=== PATIENT | male | born 1950 | race Caucasian/White ===

== ENCOUNTER 2022-09-26 08:46 | Day surgery (SDC) | payer MEDICARE, BC ==
[2022-09-26] VITALS (13 sets, daily range): BP systolic 130–155; BP diastolic 67–95
[~2022-09-26] VITALS: Ht 182.9 cm; Wt 88.0 kg
[2022-09-26] MEDS ORDERED: KEN0.1O TP (09:08)
[2022-09-26] MEDS ORDERED: TACR30OI4 TOP (09:08)
[2022-09-26] MEDS ORDERED: WITC1MED28 (09:09)
[2022-09-26] MEDS ORDERED: [UNRECOGNIZED DRUG - OTHER] (09:09)
[2022-09-26] MEDS ORDERED: normal saline 1000ml 1,000 ML IV PRN (09:40)
[2022-09-26 09:45] LABS: BASOPHILS % (AUTO) 0 % (0-1); EOSINOPHILS % (AUTO) 0 % (0-6); HEMATOCRIT 44.6 % (42.0-52.0); HEMOGLOBIN 15.2 g/dl (14.0-17.9); LYMPHOCYTES # (AUTO) 1.3 X10'3 (1.1-4.8); LYMPHOCYTES % (AUTO) 59.3 % (21-51); MEAN CORPUSCULAR HEMOGLOBIN 29.1 PG (27.0-31.0); MEAN CORPUSCULAR VOLUME 85.5 FL (78-98); MONOCYTES # (AUTO) 0.4 X10'3 (0-0.9); MONOCYTES % (AUTO) 17.7 % (2-12); NEUTROPHILS # (AUTO) 0.5 X10'3 (1.8-7.7); PLATELET COUNT 168 X10'3 (140-440); RED BLOOD COUNT 5.22 X10'6 (4.70-6.10); RED CELL DISTRIBUTION WIDTH 13.2 % (11.5-14.5); WHITE BLOOD COUNT 2.3 X10'3 (4.5-11.0)
[2022-09-26 10:33] LABS: PLATELET ESTIMATE NORMAL; TOTAL CELLS COUNTED 100
[2022-09-26] MEDS ORDERED: midazolam 1 mg/ML 2ml injection ONE (11:35)
[2022-09-26] MEDS ORDERED: fentaNYL/PF 50MCG/1 ML 2ML syringe ONE (11:35)
== END 2022-09-26 14:00 | disposition home or self-care (01) ==
LOC: SSTAY O 08:46
PROVIDERS: ATTEND Radiology Vascular & Interventional Radiology
DX: J98.59 Other diseases of mediastinum, not elsewhere classified (principal); Z79.01 Long term (current) use of anticoagulants; Z79.899 Other long term (current) drug therapy; Z88.0 Allergy status to penicillin
CPT/HCPCS: 32408; 71045; 85025; 85610; 88184; 88185; 99152; 99153; J2250; J3010; J7030; 77012; 85007; A4615